=== PATIENT | female | born 1995 | race African-American/Black ===

== ENCOUNTER 2022-07-06 12:20 | Inpatient (IN) ==
[2022-07-06 14:33] LABS: Hematocrit (blood only) 36.6 % (37.0-47.0); Hemoglobin 12.9 g/dl (12.0-16.0); Mean Corpuscular Hemoglobin 29.8 pg (25.0-34.0); Mean Corpuscular Hgb Conc 35.2 g/dL (32.0-36.0); Mean Corpuscular Volume 84.5 fL (80.0-100.0); Mean Platelet Volume 11.3 fL (9.4-12.4); Platelet Count 188 K/uL (130-400); RDW Coefficient of Variation 14.3 % (11.5-14.5); RDW Standard Deviation 44.2 fL (36.4-46.3); Red Blood Count 4.33 M/uL (4.20-5.40); White Blood Count 6.74 K/ul (4.8-10.8)
[2022-07-06 14:54] LABS: Albumin Globulin Ratio 1.2 (0.9-2); Albumin Level 3.5 gm/dl (3.4-5.0); BUN Creatinine Ratio 13.8 (10-20); Bilirubin,Total 0.5 mg/dl (0.2-1.0); Calcium 9.5 mg/dl (8.6-10.3); Creatinine Clr Calc Pharmacy 184.9 ml/min; Est GFR (African American) 145.4 ml/min; Est GFR (Non-African American) 125.4 ml/min; Globulin 2.9 gm/dl (2.5-4.0); Potassium 4.2 mmol/L (3.5-5.1); Total Protein 6.4 gm/dl (6.0-8.3)
[2022-07-06] MEDS ORDERED: LIDOCAINE 1% LOCAL 20 ML VIAL INFIL PRN (16:08)
[2022-07-06] MEDS ORDERED: OXYTOCIN 30 UNITS/500 ML BAG IV PRN ×2 (16:08)
[2022-07-06 16:11] LABS: Creatinine Urine Random 29.6 mg/dl; Protein Creatinine Ratio Urine 0.6 (0-0.2)
--- NOTE | 2022-07-06 17:14 | History & Physical Report ---
Date of Service July 06, 2022 Assessment & Plan (1) Pre-eclampsia: Plan: 26 yo G1 at 39 3/7 wga now admitted for iol for pre-eclampsia w/o SF Normal to mild range BPs, will continue to monitor. Aware of PET w/o SF dx, labs wnl. if severe range BPs, aware of need for mag Fetus cat 1 Labor - 35cc fung placed via speculum after unsuccessful attempt manually due to discomfort, will start pit GBS neg epidural PRN Admission and Anticipated Discharge Date Admission Date: July 06, 2022 History of Present Illness Chief Complaint: Elevated BPs Primary Care Provider: Reema England MD 26 yo G1 at 39 3/7 wga presented for evaluation from [facility] due to elevated BPs in the office. Had routine OB visit and first BP was 152/94, +2 protein. She was sent to L&D for further eval. +FM; denies regular ctx, LOF, VB. Denies ASTUDILLO, vision change, CP, SOB, RUQ/epigastric pain. During monitoring, had primarily normotensive BPs with intermittent mild however did have them 4 hrs apart so met criteria for PIH. Bloodwork was wnl however UP:C was elevated so meets criteria for pre-eclampsia w/o SF. Given GA, recommended for induction PNI: None Past [employer] Hx: G1 q28-31d cycles denies hx STIs 12/2021 neg cyto Allergies Allergy/AdvReac Type Severity Reaction Status Date / Time No Known Allergies Allergy Verified 07/06/22 11:35 Home Medications Medication Instructions Recorded Confirmed Type folic acid 1 mg tablet 0 mg PO DAILY 01/04/22 07/06/22 History Patient History Surgical History H/O oral surgery Family History Other Hypertension Social History Smoking Status: Never smoker Second Hand Exposure: No; Do You Dip or Chew Tobacco: No; Hx Alcohol Use: No Hx Substance Use: No Preferred Language: Czech Communication Ability: Effective Weight And Balance Control Agent Required: No Beliefs That Will Affect Care: None marital status: marital status details: Jake (31) [phone] Current Living Situation: Family Current Living Situation Comment: lives with spouse, no pets. current occupational status: unemployed Other Information That Helps Us Care for You: No Feels Safe at Home: Yes Safety Concerns: Feels Safe At This Time Assistive Devices: None Physical Exam Genitourinary: OB Exam Abdomen: + vertex (confirmed by bsus) and + estimated weight (7) Manual OB Exam: + cervical dilation fingertip, + cervical effacement 50% and + station -2 OB Exam Monitor Tracing: + external FHT monitor used, + external uterine monitor used and + category I Results & Data Vital Signs (Past 12 Hours) Vital Signs Temp Pulse Resp BP 07/06/22 13:00 98.8 F 82 18 131/85 07/06/22 16:02 67 143/84 H 07/06/22 15:46 67 135/87 07/06/22 15:31 67 135/80 07/06/22 15:16 67 126/82 07/06/22 14:46 69 132/77 07/06/22 14:31 66 128/86 07/06/22 14:03 76 135/77 07/06/22 13:46 71 128/71 07/06/22 13:31 77 140/89 07/06/22 13:17 80 139/86 07/06/22 13:01 81 131/85 07/06/22 12:43 82 139/88 Laboratory Results 07/06/22 07/06/22 07/06/22 Range/Units Unknown Unknown 14:19 WBC (4.8-10.8) K/ul RBC (4.20-5.40) M/uL Hgb (12.0-16.0) g/dl Hct (37.0-47.0) % MCV (80.0-100.0) fL MCH (25.0-34.0) pg MCHC (32.0-36.0) g/dL RDW Std Deviation (36.4-46.3) fL RDW Coeff of Kecia (11.5-14.5) % Plt Count (130-400) K/uL MPV (9.4-12.4) fL Sodium (136-145) mmol/L Potassium (3.5-5.1) mmol/L Chloride (98-107) mmol/L Carbon Dioxide (21-32) mmol/L Anion Gap (3-11) BUN (6-23) mg/dl Creatinine (0.6-1.2) mg/dl Est Cr Clr Drug Dosing ml/min Est GFR ( Amer) ml/min Est GFR (Non-Af Amer) ml/min BUN/Creatinine Ratio (10-20) Glucose (70-99(Fasting)) mg/dl Calcium (8.6-10.3) mg/dl Total Bilirubin (0.2-1.0) mg/dl AST (13-39) U/L ALT (7-52) U/L Alkaline Phosphatase (34-104) U/L Total Protein (6.0-8.3) gm/dl Albumin (3.4-5.0) gm/dl Globulin (2.5-4.0) gm/dl Albumin/Globulin Ratio (0.9-2) Ur Random Creatinine 29.6 mg/dl U Random Total Protein 19.0 H (0-11.9) mg/dl Protein/Creatinin Ratio 0.6 H (0-0.2) SARS-CoV-2, RNA, NAAT NEGATIVE (NEGATIVE) Blood Type Pending Antibody Screen Pending 07/06/22 07/06/22 Range/Units 14:19 14:19 WBC 6.74 (4.8-10.8) K/ul RBC 4.33 (4.20-5.40) M/uL Hgb 12.9 (12.0-16.0) g/dl Hct 36.6 L (37.0-47.0) % MCV 84.5 (80.0-100.0) fL MCH 29.8 (25.0-34.0) pg MCHC 35.2 (32.0-36.0) g/dL RDW Std Deviation 44.2 (36.4-46.3) fL RDW Coeff of Kecia 14.3 (11.5-14.5) % Plt Count 188 (130-400) K/uL MPV 11.3 (9.4-12.4) fL Sodium 137 (136-145) mmol/L Potassium 4.2 (3.5-5.1) mmol/L Chloride 108 H (98-107) mmol/L Carbon Dioxide 23 (21-32) mmol/L Anion Gap 6 (3-11) BUN 8 (6-23) mg/dl Creatinine 0.58 L (0.6-1.2) mg/dl Est Cr Clr Drug Dosing 184.9 ml/min Est GFR ( Amer) 145.4 ml/min Est GFR (Non-Af Amer) 125.4 ml/min BUN/Creatinine Ratio 13.8 (10-20) Glucose 68 L (70-99(Fasting)) mg/dl Calcium 9.5 (8.6-10.3) mg/dl Total Bilirubin 0.5 (0.2-1.0) mg/dl AST 13 (13-39) U/L ALT 7 (7-52) U/L Alkaline Phosphatase 156 H (34-104) U/L Total Protein 6.4 (6.0-8.3) gm/dl Albumin 3.5 (3.4-5.0) gm/dl Globulin 2.9 (2.5-4.0) gm/dl Albumin/Globulin Ratio 1.2 (0.9-2) Ur Random Creatinine mg/dl U Random Total Protein (0-11.9) mg/dl Protein/Creatinin Ratio (0-0.2) SARS-CoV-2, RNA, NAAT (NEGATIVE) Blood Type Antibody Screen Coding Level of Care Code None Diagnoses Pre-eclampsia O14.90
[2022-07-06] MEDS ORDERED: miSOPROStoL 25 MCG TAB PV ONE (17:45)
[2022-07-06] MEDS: LACTATED RINGER'S 1,000 ML IV PRN (18:43)
[2022-07-06] MEDS ORDERED: LIDOCAINE 2%/EPINEPHRINE 1:200,000 20 ML PF ONE (23:19)
[2022-07-06] MEDS ORDERED: ePHEDrine sulfate 50 MG/ML AMP ONE (23:19)
[2022-07-06] MEDS ORDERED: BUPIVACAINE 0.25% PF 30 ML VIAL ONE (23:19)
[2022-07-06] MEDS ORDERED: fentaNYL citrate PF 100 MCG/2 ML VIAL ONE (23:19)
[2022-07-06] MEDS ORDERED: SODIUM CHLORIDE 0.9% PF INJ 10 ML VIAL ONE (23:19)
[2022-07-06] MEDS ORDERED: fentaNYL 2MCG/ML ROPIVACAINE 1.25MG/ML 100 ML BAG EPI ONE (23:20)
--- NOTE | 2022-07-07 00:11 | Anesthesiology Consultation ---
Date of Service July 07, 2022 Assessment & Plan Chart Review Chart Review: Acceptable Risk for Labor Epidural Consults Requested none ASA ASA2 Proposed Anesthesia Anesthesia Type: Labor Epidural Risk / Benefits Reviewed With: PT / POA / Parent / Guardian, Accepts Plan and Informed Consent Obtained History Height/Weight Height: 5 ft 8.11 in Weight: 106.594 kg Allergies Allergy/AdvReac Type Severity Reaction Status Date / Time No Known Allergies Allergy Verified 07/06/22 11:35 Medications Home Medications Medication Instructions Recorded Confirmed Last Taken folic acid 1 mg tablet 0 mg PO DAILY 01/04/22 07/06/22 01/03/22 Active Medications Generic Name Dose Route Start Last Admin Trade Name Freq PRN Reason Stop Dose Admin Lactated Ringer's 1,000 mls @ 125 mls/hr 07/06/22 16:08 07/06/22 18:43 Lr IV 07/08/22 16:07 125 mls/hr .Q8H PRN Administration L&D Protocol Protocol Oxytocin 30 units in 500 mls @ 10 mls/hr 07/06/22 16:08 07/06/22 22:12 Pitocin IV 07/08/22 16:07 0.6 units/hr .Q24H PRN 10 mls/hr Labor Induction/Augmentation Titration Protocol 0.6 UNITS/HR Exercise / Class Metabolic Activity II 4-5 Yardwork/Stairs/Walk up hill Past Family History Family History Other Hypertension Past Surgical History Surgical History H/O oral surgery Past Anesthesia History No Hx of Anesthesia Complications and No Family Hx of Anesthesia Complications History of PONV No Hx of PONV and No Hx of Motion Sickness Social History Smoking Status: Never smoker Do You Dip or Chew Tobacco: No Hx Alcohol Use: No Hx Substance Use: No Physical Exam Vital Signs Last Vital Signs Temp 97.7 F 07/06/22 19:17 Pulse 73 07/06/22 23:55 Resp 18 07/06/22 19:17 BP 146/95 H 07/06/22 23:55 ENMT Mouth: no dentition abnormality Thyromental Distance: > or= 3.5 Finger Breadths Mallampati Class: II Neck normal visual inspection Respiratory normal respiratory effort Auscultation: lungs clear to auscultation bilaterally Cardiovascular Rate/Rhythm: regular rate and regular rhythm Testing Laboratory Results 07/06/22 14:19 07/06/22 14:19 Blood Type O Positive 07/06/22 14:19 Antibody Screen NEGATIVE 07/06/22 14:19
[2022-07-07] MEDS ORDERED: BUPIVACAINE 0.25% PF 30 ML VIAL EPI STA (00:32)
[2022-07-07] MEDS ORDERED: NALOXONE HCL 1 MG in SODIUM CHLORIDE 0.9% 1000ML 1,000 ML IV PRN ×2 (00:32→17:53)
[2022-07-07] MEDS ORDERED: SODIUM CHLORIDE 0.9% PF INJ 10 ML VIAL EPI STA (00:32)
[2022-07-07] MEDS ORDERED: ePHEDrine sulfate 50 MG/ML AMP IV PRN ×2 (00:32→17:53)
[2022-07-07] MEDS ORDERED: ROPIVACAINE 0.5% PF 5 MG/ML 20 ML VIAL EPI PRN (00:32)
[2022-07-07] MEDS ORDERED: BUPIVACAINE 0.25% PF 30 ML VIAL EPI PRN (00:32)
[2022-07-07] MEDS ORDERED: ONDANSETRON INJ 2 MG/ML 2 ML VIAL IV PRN ×2 (00:32→17:53)
[2022-07-07] MEDS ORDERED: SODIUM CHLORIDE 0.9% PF INJ 10 ML VIAL EPI PRN (00:32)
[2022-07-07] MEDS ORDERED: fentaNYL citrate PF 100 MCG/2 ML VIAL EPI PRN (00:32)
[2022-07-07] MEDS ORDERED: NALBUPHINE HCL INJ 10 MG/ML AMP IV PRN ×2 (00:32→17:53)
[2022-07-07] MEDS ORDERED: fentaNYL 2MCG/ML ROPIVACAINE 1.25MG/ML 100 ML BAG EPI PRN (00:32)
[2022-07-07] MEDS ORDERED: LIDOCAINE 2%/EPINEPHRINE 1:200,000 20 ML PF EPI STA (00:32)
[2022-07-07] MEDS ORDERED: NALOXONE HCL 0.4 MG/1 ML VIAL/CARP IV PRN ×2 (00:32→17:53)
[2022-07-07] MEDS ORDERED: fentaNYL citrate PF 100 MCG/2 ML VIAL EPI STA (00:32)
[2022-07-07] MEDS ORDERED: diphenhydrAMINE 50 MG/ML VIAL IV PRN ×2 (00:32→17:53)
[2022-07-07] MEDS ORDERED: LIDOCAINE 2% MPF LOCAL 5 ML VIAL EPI PRN (00:32)
[2022-07-07] MEDS: LACTATED RINGER'S 1,000 ML IV PRN ×3 (02:43→16:29)
--- NOTE | 2022-07-07 06:21 | Labor Progress Brief Note ---
Date of Service July 07, 2022 Subjective comfortable w/ epidural Assessment & Plan (1) Pre-eclampsia: Plan: 26 yo G1 at 39 3/7 [facility]ga now admitted for iol for pre-eclampsia w/o SF VSS, normal to mild range Fetus cat 1 Labor - Lemon balloon removed from vagina, chux appeared wet and +nitrazine so suspect srom at some point. ?forebag ruptured. Pit at 20, continue augmentation Pre-eclampsia w/o SF - mild range BPs, continue to monitor GBS neg epidural in place Admission and Anticipated Discharge Date Admission Date: July 06, 2022 Physical Exam Genitourinary: Manual OB Exam: + cervical dilation (3-4), + cervical effacement 50%, + station -2 and + amniotic fluid (chux appears wet and nitrazine positive, arom forebag) OB Exam Monitor Tracing: + external FHT monitor used, + external uterine monitor used (q2-3) and + category I (130/mod/+accel/-decel) Results & Data Vital Signs (Past 12 Hours) Vital Signs Temp Pulse Resp BP Pulse Ox 07/06/22 19:17 97.7 F 18 07/07/22 06:13 76 99 07/07/22 06:08 73 100 07/07/22 06:03 86 100 07/07/22 06:04 83 138/87 07/07/22 05:58 77 99 07/07/22 05:53 78 100 07/07/22 05:48 71 140/78 99 07/07/22 05:43 75 100 07/07/22 05:38 81 100 07/07/22 05:33 70 134/82 100 07/07/22 05:28 82 99 07/07/22 05:23 82 100 07/07/22 05:18 83 149/72 H 100 07/07/22 05:13 81 100 07/07/22 05:08 85 100 07/07/22 05:04 92 H 07/07/22 05:03 77 100 07/07/22 05:04 88 139/80 94 07/07/22 04:58 79 98 07/07/22 04:53 78 100 07/07/22 04:48 72 135/75 100 07/07/22 04:43 77 100 07/07/22 04:38 79 98 07/07/22 04:33 77 97 05 04:34 72 139/82 05 04:28 72 99 05 04:23 76 99 05 04:19 76 137/75 05 04:18 76 99 05 04:13 73 100 05 03:50 18 05 03:50 97.3 F L 18 07/07/22 04:08 74 100 05 04:03 77 137/84 100 05 03:58 77 100 05 03:53 73 100 05 03:48 80 100 05 03:49 81 141/77 H 05 03:43 73 100 05 03:38 77 100 05 03:33 80 138/75 100 05 03:28 77 100 05 03:23 73 100 05 03:18 74 100 05 03:13 73 100 07/07/22 03:08 77 100 05 03:04 71 134/82 05 03:03 74 100 05 02:58 74 100 05 02:53 76 100 05 02:48 100 07/07/22 02:48 73 05 02:48 72 120/66 05 02:43 73 100 05 02:38 73 100 05 02:33 76 127/66 100 05 02:28 70 99 07/07/22 02:23 88 100 05 02:18 81 100 05 02:19 76 141/81 H 07/07/22 02:13 75 100 05 02:08 76 99 05 02:04 72 139/75 05 02:03 80 98 05 01:58 85 98 05 01:53 78 96 05 01:48 78 98 05 01:49 74 141/84 H 05 01:43 75 97 05 01:38 74 97 05 01:34 74 155/91 H 0523 01:33 74 97 07/07/22 01:28 75 96 07/07/22 01:23 76 96 07/07/22 01:18 98 07/07/22 01:18 83 07/07/22 01:18 76 139/91 07/07/22 01:13 77 97 07/07/22 01:08 74 97 07/07/22 00:55 18 07/07/22 00:55 18 07/07/22 01:01 18 07/07/22 01:01 18 07/07/22 01:03 79 97 07/07/22 01:04 76 142/83 H 07/07/22 00:58 84 97 07/07/22 00:53 77 97 07/07/22 00:45 18 07/07/22 00:45 18 07/07/22 00:48 77 99 07/07/22 00:35 18 07/07/22 00:35 18 07/07/22 00:46 83 139/73 07/07/22 00:43 79 98 07/07/22 00:44 75 152/84 H 07/07/22 00:42 73 149/82 H 07/07/22 00:40 75 18 144/77 H 07/07/22 00:38 98 07/07/22 00:38 74 07/07/22 00:38 75 144/78 H 07/07/22 00:36 76 141/79 H 07/07/22 00:33 75 98 07/07/22 00:34 77 143/74 H 07/07/22 00:32 74 142/80 H 07/07/22 00:30 97.3 F L 82 18 145/77 H 07/07/22 00:28 80 165/93 H 98 07/07/22 00:24 90 164/96 H 07/07/22 00:23 82 97 07/07/22 00:18 78 98 07/07/22 00:13 78 98 05 23:55 73 05 23:55 146/95 H 07/06/22 23:40 75 05 23:40 155/88 H 05 23:25 72 05 23:25 159/90 H 05 23:11 70 05 23:11 162/85 H 07/06/22 22:55 69 07/06/22 22:55 166/92 H 07/06/22 22:41 66 07/06/22 22:41 148/92 H 07/06/22 22:09 74 07/06/22 22:09 132/84 07/06/22 21:54 75 07/06/22 21:54 133/81 07/06/22 21:40 69 07/06/22 21:40 135/83 07/06/22 21:30 75 07/06/22 21:30 152/88 H 07/06/22 21:10 71 07/06/22 21:10 145/91 H 07/06/22 20:55 73 07/06/22 20:55 134/67 07/06/22 20:39 71 07/06/22 20:39 141/83 H 07/06/22 20:24 69 07/06/22 20:24 154/89 H 07/06/22 19:22 66 07/06/22 19:22 155/95 H 07/06/22 19:11 63 07/06/22 19:11 160/96 H 07/06/22 19:09 67 07/06/22 19:09 156/111 H 07/06/22 19:09 64 07/06/22 19:09 181/103 H 07/06/22 18:53 61 07/06/22 18:53 165/98 H 07/06/22 18:37 68 07/06/22 18:37 161/93 H 07/06/22 18:24 68 07/06/22 18:24 164/98 H Coding Level of Care Code None Diagnoses Pre-eclampsia O14.90
[2022-07-07] MEDS ORDERED: NURSING L&D Epidural Breakthrough Pain Update ONE (10:28)
--- NOTE | 2022-07-07 14:04 | Labor Progress Brief Note ---
Date of Service July 07, 2022 Patient was admitted by Dr. Priest yesterday and induction was started she was 4 cm at 6 AM currently now I have checked her it is 2 PM and she is still 4 cm the cervix is somewhat swollen. She is on Pitocin and IUPC is placed under sterile technique we will continue to watch of her progress is certainly slow Assessment & Plan Admission and Anticipated Discharge Date Admission Date: July 06, 2022 Results & Data Vital Signs (Past 12 Hours) Vital Signs Temp Pulse Resp BP BP Pulse Ox O2 Del Method 07/07/22 12:05 98.6 F 16 133/79 100 Room Air 07/07/22 13:58 87 86 L 07/07/22 13:53 70 100 07/07/22 13:48 74 140/90 100 07/07/22 13:43 72 100 07/07/22 13:38 76 99 07/07/22 13:33 100 07/07/22 13:33 78 07/07/22 13:33 75 151/98 H 07/07/22 13:28 71 100 07/07/22 13:23 71 100 07/07/22 13:18 75 151/95 H 100 07/07/22 13:13 80 100 07/07/22 13:10 98.1 F 91 H 18 93 07/07/22 13:08 77 100 07/07/22 13:03 73 100 07/07/22 13:04 68 145/89 H 07/07/22 12:58 85 99 07/07/22 12:53 73 99 07/07/22 12:48 70 134/75 99 07/07/22 12:43 77 98 07/07/22 12:38 69 98 07/07/22 12:33 100 07/07/22 12:33 67 07/07/22 12:33 68 134/68 07/07/22 12:28 69 99 07/07/22 12:23 67 99 07/07/22 12:18 99 07/07/22 12:18 67 07/07/22 12:18 68 128/76 07/07/22 12:13 71 98 07/07/22 12:08 68 99 07/07/22 12:04 68 133/79 07/07/22 12:03 98.6 F 69 16 99 07/07/22 11:58 68 100 07/07/22 11:53 69 99 05 11:48 68 148/74 H 100 05 11:43 73 100 05 11:38 67 99 05 11:33 66 141/89 H 100 05 11:28 67 100 05 11:23 76 100 05 11:19 73 130/89 05 11:18 76 100 05 11:13 76 100 05 11:08 80 100 05 11:03 77 147/74 H 99 05 10:58 75 99 05 10:53 74 98 05 10:48 75 98 05 10:49 73 134/69 05 10:43 71 99 05 10:38 78 99 05 10:33 72 137/80 99 05 10:28 77 98 05 10:23 74 98 05 10:19 72 137/81 05 10:18 76 100 05 10:13 80 99 05 10:08 80 97 05 10:04 98.6 F 80 16 145/87 H 07/07/22 10:03 81 98 05 09:58 81 98 05 09:53 79 97 05 09:48 97 05 09:48 80 05 09:48 77 144/80 H 07/07/22 09:43 78 99 05 09:38 79 99 05 09:33 79 139/77 98 05 09:28 81 98 05 09:23 75 98 05 09:18 99 05 09:18 77 05 09:18 75 143/83 H 05 09:13 81 97 05 09:08 78 97 05 09:05 16 07/07/22 09:05 99.1 F 16 05 09:03 97 05 09:03 77 05 09:03 78 130/75 05 08:58 80 97 05 08:53 81 98 05 08:48 98 05 08:48 78 05 08:48 77 119/65 05 08:43 83 99 05 08:38 84 98 05 08:33 99 05 08:33 84 05 08:33 78 116/67 05 08:28 87 100 05 08:23 81 100 05 08:10 18 05 08:10 99.1 F 18 07/07/22 08:18 100 05 08:18 78 05 08:18 76 127/78 05 08:13 74 100 07/07/22 08:08 81 99 05 08:03 83 99 07/07/22 08:04 74 142/82 H 05 07:58 80 99 05 07:53 78 99 05 07:48 99 07/07/22 07:48 74 05 07:48 78 142/87 H 05 07:43 85 100 05 07:38 78 99 05 07:33 83 145/72 H 100 05 07:28 76 99 05 07:23 77 99 05 07:18 80 137/77 99 05 07:13 86 100 07/07/22 07:08 83 100 05 07:05 98.2 F 75 18 132/73 05 07:03 87 100 05 06:58 72 99 05 06:53 81 99 05 06:48 75 99 05 06:49 75 131/72 05 06:43 83 100 05 06:38 81 99 05 06:33 99 05 06:33 81 05 06:33 85 137/86 05 06:28 79 99 05 06:06 18 05 06:06 97.9 F 18 05 06:23 88 100 05 06:19 80 132/76 05 06:18 88 100 05 06:13 76 99 05 06:08 73 100 05 06:03 86 100 07/07/22 06:04 83 138/87 05 05:58 77 99 05 05:53 78 100 05 05:48 71 140/78 99 05 05:43 75 100 05 05:38 81 100 05 05:33 70 134/82 100 05 05:28 82 99 05 05:23 82 100 05 05:18 83 149/72 H 100 05 05:13 81 100 07/07/22 05:08 85 100 05 05:04 92 H 07/07/22 05:03 77 100 07/07/22 05:04 88 139/80 94 05 04:58 79 98 05 04:53 78 100 05 04:48 72 135/75 100 05 04:43 77 100 05 04:38 79 98 05 04:33 77 97 05 04:34 72 139/82 05 04:28 72 99 05 04:23 76 99 05 04:19 76 137/75 05 04:18 76 99 05 04:13 73 100 05 03:50 18 05 03:50 97.3 F L 18 07/07/22 04:08 74 100 05 04:03 77 137/84 100 05 03:58 77 100 05 03:53 73 100 05 03:48 80 100 05 03:49 81 141/77 H 05 03:43 73 100 05 03:38 77 100 05 03:33 80 138/75 100 05 03:28 77 100 05 03:23 73 100 05/23/23 03:18 74 100 07/07/22 03:13 73 100 07/07/22 03:08 77 100 07/07/22 03:04 71 134/82 07/07/22 03:03 74 100 07/07/22 02:58 74 100 07/07/22 02:53 76 100 07/07/22 02:48 100 07/07/22 02:48 73 07/07/22 02:48 72 120/66 07/07/22 02:43 73 100 07/07/22 02:38 73 100 07/07/22 02:33 76 127/66 100 07/07/22 02:28 70 99 07/07/22 02:23 88 100 07/07/22 02:18 81 100 07/07/22 02:19 76 141/81 H 07/07/22 02:13 75 100 07/07/22 02:08 76 99 07/07/22 02:04 72 139/75 Coding Level of Care Code None Diagnoses
[2022-07-07] MEDS ORDERED: LACTATED RINGER'S 1,000 ML IV SCH ×2 (16:00→18:36)
--- NOTE | 2022-07-07 16:02 | Labor Progress Brief Note ---
Date of Service July 07, 2022 Patient is still 4 cm there is been no change her contractions are adequate with 300 [place] units per 10 minutes heart rate still category 1 I have recommended as she has not changed in 10 hours now patient agrees we discussed risks including increased risk of infection with prolonged labor section. The patient was counseled to the nature of the procedure including alternatives such as labor. Risks were discussed including bleeding infection injury to bowel bladder ureter vessels and even baby. Deep Vein thrombosis, pulmonary embolus discussed. Breakdown of incision reviewed. Deep vein thrombosis pulmonary embolus hernia and failure of the incision to heal were discussed Patient verbalized understanding of this and was given ample time to ask questions Assessment & Plan Admission and Anticipated Discharge Date Admission Date: July 06, 2022 Results & Data Vital Signs (Past 12 Hours) Vital Signs Temp Pulse Resp BP BP Pulse Ox O2 Del Method 07/07/22 12:05 98.6 F 16 133/79 100 Room Air 07/07/22 15:58 79 100 07/07/22 15:53 86 98 07/07/22 15:51 84 89 L 07/07/22 15:48 87 100 07/07/22 15:47 77 144/94 H 07/07/22 15:43 72 99 07/07/22 15:38 72 99 07/07/22 15:33 85 144/91 H 99 07/07/22 15:28 81 100 07/07/22 15:23 90 151/103 H 100 07/07/22 15:18 88 99 07/07/22 15:19 86 144/95 H 07/07/22 15:13 93 H 100 07/07/22 15:08 77 100 07/07/22 15:03 99 07/07/22 15:03 74 07/07/22 15:03 71 141/90 H 07/07/22 14:58 79 100 07/07/22 14:53 75 97 07/07/22 14:48 74 152/92 H 96 07/07/22 14:43 80 97 07/07/22 14:38 76 97 07/07/22 14:33 97 07/07/22 14:33 75 07/07/22 14:33 74 157/93 H 07/07/22 14:28 77 99 07/07/22 14:23 74 100 07/07/22 14:19 74 152/88 H 07/07/22 14:18 79 100 07/07/22 14:13 71 100 07/07/22 14:05 18 07/07/22 14:05 98.1 F 18 07/07/22 14:08 81 100 07/07/22 14:03 100 07/07/22 14:03 81 07/07/22 14:04 85 90 07/07/22 14:03 73 147/89 H 07/07/22 13:58 87 86 L 07/07/22 13:53 70 100 05 13:48 74 140/90 100 07/07/22 13:43 72 100 07/07/22 13:38 76 99 05 13:33 100 07/07/22 13:33 78 05 13:33 75 151/98 H 07/07/22 13:28 71 100 07/07/22 13:23 71 100 07/07/22 13:18 75 151/95 H 100 07/07/22 13:13 80 100 07/07/22 13:10 98.1 F 91 H 18 93 07/07/22 13:08 77 100 07/07/22 13:03 73 100 07/07/22 13:04 68 145/89 H 07/07/22 12:58 85 99 07/07/22 12:53 73 99 07/07/22 12:48 70 134/75 99 07/07/22 12:43 77 98 07/07/22 12:38 69 98 07/07/22 12:33 100 07/07/22 12:33 67 05 12:33 68 134/68 05 12:28 69 99 05 12:23 67 99 07/07/22 12:18 99 07/07/22 12:18 67 05 12:18 68 128/76 05 12:13 71 98 07/07/22 12:08 68 99 07/07/22 12:04 68 133/79 05 12:03 98.6 F 69 16 99 05 11:58 68 100 05 11:53 69 99 05 11:48 68 148/74 H 100 05 11:43 73 100 05 11:38 67 99 05 11:33 66 141/89 H 100 05 11:28 67 100 05 11:23 76 100 05 11:19 73 130/89 05 11:18 76 100 05 11:13 76 100 05 11:08 80 100 05 11:03 77 147/74 H 99 05 10:58 75 99 05 10:53 74 98 05 10:48 75 98 05 10:49 73 134/69 05 10:43 71 99 05 10:38 78 99 05 10:33 72 137/80 99 05 10:28 77 98 05 10:23 74 98 05 10:19 72 137/81 05 10:18 76 100 05 10:13 80 99 05 10:08 80 97 05 10:04 98.6 F 80 16 145/87 H 07/07/22 10:03 81 98 05 09:58 81 98 05 09:53 79 97 05 09:48 97 05 09:48 80 05 09:48 77 144/80 H 07/07/22 09:43 78 99 05 09:38 79 99 05 09:33 79 139/77 98 05 09:28 81 98 05 09:23 75 98 05 09:18 99 05 09:18 77 05 09:18 75 143/83 H 07/07/22 09:13 81 97 05 09:08 78 97 05 09:05 16 07/07/22 09:05 99.1 F 16 07/07/22 09:03 97 07/07/22 09:03 77 05 09:03 78 130/75 05 08:58 80 97 05 08:53 81 98 05 08:48 98 05 08:48 78 05 08:48 77 119/65 05 08:43 83 99 05 08:38 84 98 05 08:33 99 05 08:33 84 05 08:33 78 116/67 05 08:28 87 100 05 08:23 81 100 05 08:10 18 07/07/22 08:10 99.1 F 18 07/07/22 08:18 100 05 08:18 78 05 08:18 76 127/78 05 08:13 74 100 05 08:08 81 99 07/07/22 08:03 83 99 07/07/22 08:04 74 142/82 H 07/07/22 07:58 80 99 05 07:53 78 99 05 07:48 99 05 07:48 74 05 07:48 78 142/87 H 05 07:43 85 100 05 07:38 78 99 05 07:33 83 145/72 H 100 05 07:28 76 99 05 07:23 77 99 05 07:18 80 137/77 99 05 07:13 86 100 05 07:08 83 100 07/07/22 07:05 98.2 F 75 18 132/73 05 07:03 87 100 07/07/22 06:58 72 99 05 06:53 81 99 05 06:48 75 99 05 06:49 75 131/72 05 06:43 83 100 05 06:38 81 99 05 06:33 99 05 06:33 81 05 06:33 85 137/86 05 06:28 79 99 05 06:06 18 05 06:06 97.9 F 18 05 06:23 88 100 05 06:19 80 132/76 05 06:18 88 100 07/07/22 06:13 76 99 05 06:08 73 100 07/07/22 06:03 86 100 07/07/22 06:04 83 138/87 05 05:58 77 99 05 05:53 78 100 07/07/22 05:48 71 140/78 99 05 05:43 75 100 07/07/22 05:38 81 100 07/07/22 05:33 70 134/82 100 07/07/22 05:28 82 99 07/07/22 05:23 82 100 07/07/22 05:18 83 149/72 H 100 07/07/22 05:13 81 100 07/07/22 05:08 85 100 07/07/22 05:04 92 H 07/07/22 05:03 77 100 07/07/22 05:04 88 139/80 94 07/07/22 04:58 79 98 07/07/22 04:53 78 100 07/07/22 04:48 72 135/75 100 05 04:43 77 100 07/07/22 04:38 79 98 07/07/22 04:33 77 97 07/07/22 04:34 72 139/82 05 04:28 72 99 07/07/22 04:23 76 99 05 04:19 76 137/75 05 04:18 76 99 05 04:13 73 100 07/07/22 04:08 74 100 07/07/22 04:03 77 137/84 100 Coding Level of Care Code None Diagnoses
[2022-07-07] MEDS ORDERED: LIDOCAINE 2%/EPINEPHRINE 1:200,000 20 ML PF ONE (16:07)
[2022-07-07] MEDS ORDERED: OXYTOCIN 10 UNITS/ML 10ML VIAL ONE (16:07)
[2022-07-07] MEDS ORDERED: ONDANSETRON INJ 2 MG/ML 2 ML VIAL ONE (16:07)
[2022-07-07] MEDS ORDERED: MoRPHine SULFATE PF 1 MG/ML 10 ML AMP/VIAL ONE (16:08)
[2022-07-07] MEDS ORDERED: LACTATED RINGER'S 500 ML IV PRN (17:53)
[2022-07-07] MEDS ORDERED: MoRPHine SULFATE PF 1 MG/ML 10 ML AMP/VIAL EPI ONE (17:53)
[2022-07-07] MEDS ORDERED: PROMETHAZINE HCL 6.25 MG in SODIUM CHLORIDE 0.9% 50 ML IV PRN (17:53)
[2022-07-07] MEDS ORDERED: NALOXONE HCL 0.08 MG in SYRINGE 1.8 ML IV PRN (17:53)
[2022-07-07] MEDS ORDERED: HYDROmorphone INJ 0.5 MG/0.5 ML SYR IV PRN (17:53)
[2022-07-07] MEDS ORDERED: SODIUM CHLORIDE 0.9% 1000ML 1,000 ML IV SCH (18:00)
[2022-07-07] MEDS ORDERED: NO NARCOTICS OR SEDATIVES SCH (18:00)
[2022-07-07] MEDS ORDERED: DC INTRASPINAL MORPHINE SCH (18:00)
--- NOTE | 2022-07-07 18:14 | Operative Report ---
PG Post Operative Report Pre & Post Diagnosis Operation Date: 07/07/22 16:50 Pre-Op Diagnosis: 1. Failure to progress Post-Op Diagnosis: Same I identified the patient and participated in the time-out.: Yes Procedure Operation Date: 07/07/22 16:50 Actual Procedures p Section in LD with the of a live male child at 1735. - Derick Garg MD, FACOG Surgeon Derick Garg MD, FACOG Flight Technician . Estimated Blood Loss 500 Findings Consistent with Post-Op Diagnosis Specimens cord gases, blood Description of Procedure Regional anesthetic had been given by anesthesia patient was prepped and draped with a leftward tilt preoperative antibiotics had been given in appropriate timing by anesthesiology. Once the prep was allowed to fully dry timeout was performed. Pickups with teeth were used to test the incision area was found to be adequate for incision as the patient did not feel sharp pain. Scalpel was used to make a Pfannenstiel incision on the lower abdomen. We then cut through the subcutaneous fat down to the level of the anterior rectus sheath fascia this was cut in the midline and then extended laterally with the curved Clemente scissors. At this stage we then placed 2 Dustin clamps on the anterior aspect of the fascia. Using the curved Clemente's we are able to dissect the fascia superiorly away from the rectus muscles. Care was taken to maintain hemostasis. Dustin clamps were then placed to the inferior aspect of the anterior sheath of the fascia. Fascia was then dissected away from the rectus muscles inferiorly towards the pubic bone. A Dustin was then placed in the midline both inferiorly and superiorly. This was to allow exposure by retraction rectus muscles were in the midline with were then able to cut through the peritoneum and then enter the peritoneal cavity. Opening was enlarged to allow exposure of the peritoneal cavity both superiorly and inferiorly. Once adequate space was obtained a bladder retractor was placed to expose the lower segment Metzenbaums were used to dissect the bladder flap inferiorly away from the uterus. This was done sharply bladder retractor was then repositioned to expose the lower segment of the uterus Fresh scalpel was used to make a low transverse incision on the uterus. Uterus was then entered bluntly with the operators finger, membranes ruptured and the opening was enlarged using the operators fingers bluntly pulling superiorly and inferiorly to allow exposure. Baby was delivered by first flexion of the head elevation of the head out of the pelvis and then pressure by the assistant manager retail on the maternal abdomen. Baby's head was then delivered mouth and then nares were suctioned and then using gentle traction the baby was fully delivered. Live vigorous infant. Fluid was clear cord clamped and cut cord gases obtained cord blood obtained baby handed to pediatrics. Placenta removed was removed with traction we ensure the entire placenta was removed with a moist lap sponge into the uterus Uterus was then exteriorized. IV Pitocin had been started by anesthesia tone improved there were no extensions the uterus was then closed using 0 Monocryl in a 2 layer closure the first layer closed in a running locked fashion from left to right and then a second closure from left to right in a running nonlocked fashion. At this stage hemostasis was excellent. Uterus was placed back in the peritoneal cavity with suction irrigation out and inspection of the uterus at this stage revealed excellent hemostasis Retractors were removed urine color was clear at this stage of the case we inspected the rectus muscles they were hemostatic fascia was closed with 0 Vicryl subcutaneous fat was irrigated and closed with 3-0 Vicryl skin closed with 4-0 subcuticular Monocryl Note uterus, adnexa normal I attest to the content of the Intraoperative Record and any orders documented therein. Any exceptions are noted below. OB Procedure Charges 63906
--- NOTE | 2022-07-07 18:18 | Anesthesiology Progress Note ---
Date of Service July 07, 2022 Anesthesia Post Procedure Vital Signs Vital Signs: Temp Pulse Resp BP BP Pulse Ox O2 Del Method 07/07/22 12:05 37.0 C 16 133/79 100 Room Air 07/06/22 19:17 36.5 C 18 07/07/22 18:16 95 H 100 07/07/22 18:15 96 H 133/71 07/07/22 18:11 99 H 130/66 100 07/07/22 17:03 88 99 07/07/22 16:58 96 H 99 07/07/22 16:55 90 138/71 07/07/22 16:53 96 H 100 07/07/22 16:54 98 H 88 L 07/07/22 16:48 118 H 206/128 H 100 07/07/22 16:47 100 H 93 07/07/22 16:43 81 100 07/07/22 16:38 80 100 07/07/22 16:33 83 100 07/07/22 16:32 79 147/85 H 07/07/22 16:28 85 100 07/07/22 16:23 77 99 07/07/22 16:18 90 100 07/07/22 16:17 84 139/84 07/07/22 16:13 89 99 07/07/22 16:08 87 100 07/07/22 16:03 80 99 07/07/22 16:02 81 149/90 H 07/07/22 15:58 79 100 07/07/22 15:53 86 98 07/07/22 15:51 84 89 L 07/07/22 15:48 87 100 07/07/22 15:47 77 144/94 H 07/07/22 15:43 72 99 07/07/22 15:38 72 99 07/07/22 15:33 85 144/91 H 99 07/07/22 15:28 81 100 07/07/22 15:23 90 151/103 H 100 07/07/22 15:18 88 99 07/07/22 15:19 86 144/95 H 07/07/22 15:13 93 H 100 07/07/22 15:08 77 100 07/07/22 15:03 99 07/07/22 15:03 74 07/07/22 15:03 71 141/90 H 07/07/22 14:58 79 100 07/07/22 14:53 75 97 07/07/22 14:48 74 152/92 H 96 07/07/22 14:43 80 97 07/07/22 14:38 76 97 07/07/22 14:33 97 07/07/22 14:33 75 07/07/22 14:33 74 157/93 H 07/07/22 14:28 77 99 07/07/22 14:23 74 100 07/07/22 14:19 74 152/88 H 07/07/22 14:18 79 100 07/07/22 14:13 71 100 07/07/22 14:05 18 07/07/22 14:05 36.7 C 18 07/07/22 14:08 81 100 07/07/22 14:03 100 07/07/22 14:03 81 07/07/22 14:04 85 90 07/07/22 14:03 73 147/89 H 07/07/22 13:58 87 86 L 07/07/22 13:53 70 100 07/07/22 13:48 74 140/90 100 07/07/22 13:43 72 100 07/07/22 13:38 76 99 07/07/22 13:33 100 07/07/22 13:33 78 05 13:33 75 151/98 H 07/07/22 13:28 71 100 07/07/22 13:23 71 100 07/07/22 13:18 75 151/95 H 100 07/07/22 13:13 80 100 07/07/22 13:10 36.7 C 91 H 18 93 07/07/22 13:08 77 100 07/07/22 13:03 73 100 07/07/22 13:04 68 145/89 H 07/07/22 12:58 85 99 07/07/22 12:53 73 99 07/07/22 12:48 70 134/75 99 05 12:43 77 98 07/07/22 12:38 69 98 07/07/22 12:33 100 07/07/22 12:33 67 05 12:33 68 134/68 05 12:28 69 99 05 12:23 67 99 05 12:18 99 07/07/22 12:18 67 05 12:18 68 128/76 05 12:13 71 98 05 12:08 68 99 05 12:04 68 133/79 05 12:03 37.0 C 69 16 99 05 11:58 68 100 05 11:53 69 99 05 11:48 68 148/74 H 100 05 11:43 73 100 05 11:38 67 99 05 11:33 66 141/89 H 100 05 11:28 67 100 05 11:23 76 100 05 11:19 73 130/89 05 11:18 76 100 05 11:13 76 100 05 11:08 80 100 07/07/22 11:03 77 147/74 H 99 05 10:58 75 99 05 10:53 74 98 05 10:48 75 98 05 10:49 73 134/69 05 10:43 71 99 05 10:38 78 99 05 10:33 72 137/80 99 05 10:28 77 98 05 10:23 74 98 05 10:19 72 137/81 05 10:18 76 100 05 10:13 80 99 05 10:08 80 97 07/07/22 10:04 37.0 C 80 16 145/87 H 07/07/22 10:03 81 98 05 09:58 81 98 05 09:53 79 97 05 09:48 97 05 09:48 80 05 09:48 77 144/80 H 05 09:43 78 99 05 09:38 79 99 05 09:33 79 139/77 98 05 09:28 81 98 05 09:23 75 98 05 09:18 99 05 09:18 77 05 09:18 75 143/83 H 05/23 09:13 81 97 05 09:08 78 97 05 09:05 16 07/07/22 09:05 37.3 C 16 07/07/22 09:03 97 07/07/22 09:03 77 05 09:03 78 130/75 05 08:58 80 97 05 08:53 81 98 05 08:48 98 07/07/22 08:48 78 05 08:48 77 119/65 05 08:43 83 99 05 08:38 84 98 07/07/22 08:33 99 05 08:33 84 05 08:33 78 116/67 05 08:28 87 100 05 08:23 81 100 05 08:10 18 07/07/22 08:10 37.3 C 18 07/07/22 08:18 100 07/07/22 08:18 78 05 08:18 76 127/78 05 08:13 74 100 05 08:08 81 99 05 08:03 83 99 05 08:04 74 142/82 H 07/07/22 07:58 80 99 05 07:53 78 99 07/07/22 07:48 99 07/07/22 07:48 74 05 07:48 78 142/87 H 07/07/22 07:43 85 100 05 07:38 78 99 05 07:33 83 145/72 H 100 05 07:28 76 99 05 07:23 77 99 05 07:18 80 137/77 99 05 07:13 86 100 07/07/22 07:08 83 100 05 07:05 36.8 C 75 18 132/73 05 07:03 87 100 05 06:58 72 99 05 06:53 81 99 05 06:48 75 99 05 06:49 75 131/72 05 06:43 83 100 05 06:38 81 99 05 06:33 99 05 06:33 81 05 06:33 85 137/86 05 06:28 79 99 05 06:06 18 07/07/22 06:06 36.6 C 18 07/07/22 06:23 88 100 07/07/22 06:19 80 132/76 05 06:18 88 100 07/07/22 06:13 76 99 05 06:08 73 100 07/07/22 06:03 86 100 07/07/22 06:04 83 138/87 05 05:58 77 99 05 05:53 78 100 05 05:48 71 140/78 99 07/07/22 05:43 75 100 05 05:38 81 100 07/07/22 05:33 70 134/82 100 05 05:28 82 99 07/07/22 05:23 82 100 07/07/22 05:18 83 149/72 H 100 07/07/22 05:13 81 100 07/07/22 05:08 85 100 07/07/22 05:04 92 H 07/07/22 05:03 77 100 07/07/22 05:04 88 139/80 94 07/07/22 04:58 79 98 05 04:53 78 100 05 04:48 72 135/75 100 05 04:43 77 100 07/07/22 04:38 79 98 05 04:33 77 97 05 04:34 72 139/82 05 04:28 72 99 05 04:23 76 99 05 04:19 76 137/75 05 04:18 76 99 05 04:13 73 100 05 03:50 18 07/07/22 03:50 36.3 C L 18 07/07/22 04:08 74 100 05 04:03 77 137/84 100 05 03:58 77 100 05 03:53 73 100 05 03:48 80 100 05 03:49 81 141/77 H 05 03:43 73 100 05 03:38 77 100 05 03:33 80 138/75 100 05 03:28 77 100 05 03:23 73 100 05 03:18 74 100 05 03:13 73 100 05 03:08 77 100 05 03:04 71 134/82 05 03:03 74 100 05 02:58 74 100 05 02:53 76 100 05 02:48 100 05 02:48 73 05 02:48 72 120/66 05 02:43 73 100 07/07/22 02:38 73 100 05 02:33 76 127/66 100 05 02:28 70 99 05 02:23 88 100 05 02:18 81 100 05 02:19 76 141/81 H 05 02:13 75 100 05 02:08 76 99 05 02:04 72 139/75 05 02:03 80 98 05 01:58 85 98 07/07/22 01:53 78 96 07/07/22 01:48 78 98 07/07/22 01:49 74 141/84 H 07/07/22 01:43 75 97 05 01:38 74 97 05 01:34 74 155/91 H 05 01:33 74 97 05 01:28 75 96 05 01:23 76 96 05 01:18 98 05 01:18 83 05 01:18 76 139/91 05 01:13 77 97 05 01:08 74 97 05 00:55 18 05 00:55 18 05 01:01 18 05 01:01 18 07/07/22 01:03 79 97 05 01:04 76 142/83 H 07/07/22 00:58 84 97 07/07/22 00:53 77 97 07/07/22 00:45 18 07/07/22 00:45 18 07/07/22 00:48 77 99 07/07/22 00:35 18 07/07/22 00:35 18 07/07/22 00:46 83 139/73 07/07/22 00:43 79 98 07/07/22 00:44 75 152/84 H 07/07/22 00:42 73 149/82 H 07/07/22 00:40 75 18 144/77 H 07/07/22 00:38 98 07/07/22 00:38 74 05 00:38 75 144/78 H 07/07/22 00:36 76 141/79 H 07/07/22 00:33 75 98 07/07/22 00:34 77 143/74 H 07/07/22 00:32 74 142/80 H 07/07/22 00:30 36.3 C L 82 18 145/77 H 07/07/22 00:28 80 165/93 H 98 07/07/22 00:24 90 164/96 H 07/07/22 00:23 82 97 07/07/22 00:18 78 98 07/07/22 00:13 78 98 07/06/22 23:55 73 07/06/22 23:55 146/95 H 07/06/22 23:40 75 07/06/22 23:40 155/88 H 07/06/22 23:25 72 07/06/22 23:25 159/90 H 07/06/22 23:11 70 05 23:11 162/85 H 07/06/22 22:55 69 05 22:55 166/92 H 07/06/22 22:41 66 05 22:41 148/92 H 07/06/22 22:09 74 05 22:09 132/84 05 21:54 75 07/06/22 21:54 133/81 05 21:40 69 0522 21:40 135/83 05 21:30 75 05 21:30 152/88 H 05 21:10 71 07/06/22 21:10 145/91 H 07/06/22 20:55 73 07/06/22 20:55 134/67 07/06/22 20:39 71 07/06/22 20:39 141/83 H 07/06/22 20:24 69 07/06/22 20:24 154/89 H 07/06/22 19:22 66 07/06/22 19:22 155/95 H 07/06/22 19:11 63 07/06/22 19:11 160/96 H 07/06/22 19:09 67 07/06/22 19:09 156/111 H 07/06/22 19:09 64 07/06/22 19:09 181/103 H 07/06/22 18:53 61 07/06/22 18:53 165/98 H 07/06/22 18:37 68 07/06/22 18:37 161/93 H 07/06/22 18:24 68 07/06/22 18:24 164/98 H Pain Intensity Bilateral Abdomen: Pain Intensity: 0 Transfer of Care Handoff Completed per policy Notes Mental Status: alert / awake / arousable and participated in evaluation Patient Amnestic to Procedure: No Nausea / Vomiting: adequately controlled Pain: adequately controlled Airway Patency, RR, SpO2: stable & adequate BP & HR: stable & adequate Hydration State: stable & adequate Neuraxial Anesthesia: was administered and sensory block is resolving Anesthetic Complications: no major complications apparent and Pt Satisfied with anesthetic care
--- NOTE | 2022-07-07 18:18 | Anesthesia Procedure Note ---
Date of Service July 07, 2022 Anesthesia Post Epidural Note Vital Signs Vital Signs: Temp Pulse Resp BP Pulse Ox O2 Del Method 36.7 C 95 H 18 133/71 100 Room Air 07/07/22 14:05 07/07/22 18:16 07/07/22 14:05 07/07/22 18:15 07/07/22 18:16 07/07/22 12:05 Pain Intensity Bilateral Abdomen: Pain Intensity: 0 Notes Mental Status: alert / awake / arousable and participated in evaluation Patient Amnestic to Procedure: No Nausea / Vomiting: adequately controlled Pain: adequately controlled Airway Patency, RR, SpO2: stable & adequate BP & HR: stable & adequate Hydration State: stable & adequate Neuraxial Anesthesia: was administered and sensory block is resolving Anesthetic Complications: no major complications apparent and Pt Satisfied with anesthetic care Epidural: Removed without complications and With tip intact
[2022-07-07 18:28] LABS: Base Excess Cord Venous Blood -2.6 mEq/L (-7.7-1.9); Cord Venous Blood HCO3 24 mmol/L (18.4-26.8); Cord Venous Blood PCO2 46 mmHg (30.4-57.2); Cord Venous Blood PO2 22 mmHg (14.1-43.3); Cord Venous Blood pH 7.32 (7.20-7.44); O2 Saturation Cord Venous Bld < 60.0 % (<68)
[2022-07-07 18:29] LABS: Base Excess Cord Arterial Bld -3.2 mEq/L (-9-1.8); CO2 Cord Arterial Blood 61 mmHg (39.1-73.5); HCO3 Cord Arterial Blood 26 mmol/L (19.7-28.5); Oxygen Sat Cord Arterial Blood < 60.0 % (<60); PO2 Cord Arterial Blood 14 mmHg (4.1-31.7); pH Cord Arterial Blood 7.23 (7.1-7.38)
[2022-07-07] MEDS ORDERED: SENNA 8.6 MG TAB PO PRN (18:36)
[2022-07-07] MEDS ORDERED: MAGNESIUM HYDROXIDE SUSP 30 ML UDC PO PRN (18:36)
[2022-07-07] MEDS ORDERED: DIPHTHERIA/TETANUS/PERTUSSIS Vaccine (Tdap, Age 7+yrs) 0.5mL SYR/VL IM ONE (18:36)
[2022-07-07] MEDS ORDERED: HYDROCORTISONE ACETATE 25 MG SUPP PR PRN (18:36)
[2022-07-07] MEDS ORDERED: BENZOCAINE 20% AER SPR 82.5 GM CAN EXT PRN (18:36)
[2022-07-07] MEDS ORDERED: SODIUM CHLORIDE 0.9% 250 ML IV PRN (19:22)
[2022-07-07] MEDS: OXYTOCIN 20 UNITS in LACTATED RINGER'S 1,000 ML IV SCH (20:14)
[2022-07-07] MEDS: KETOROLAC 30 MG/ML VIAL IV PRN (20:17)
[2022-07-07] MEDS: SIMETHICONE 80 MG CHEW PO SCH (22:09)
[2022-07-07] MEDS: DOCUSATE SODIUM 100 MG CAP PO SCH (22:35)
[2022-07-08] MEDS: OXYTOCIN 20 UNITS in LACTATED RINGER'S 1,000 ML IV SCH (04:25)
--- NOTE | 2022-07-08 06:10 | Obstetrical Progress Note ---
Date of Service <Clara McnamaraYeimy Martinez DO - Last Filed: 07/08/22 07:40> July 08, 2022 Assessment & Plan <Clara McnamaraYeimy Martinez DO - Last Filed: 07/08/22 07:40> (1) care following delivery: Patient is PPD 1 s/p primary CS and doing well. - Vitals reviewed and BPs 140-150s/70-80s over the last 12 hours- will continue to monitor - Pain well controlled with analgesics - OOB, ambulation, diet progression as tolerated - Blood type: O+, GBS neg, rubella immune - Plan to discharge tomorrow or Wednesday - After discharge, 6 week follow up with Dr. Garg <Derick Garg MD, FACOG - Last Filed: 07/08/22 07:52> (1) care following delivery: Subjective <Clara Colvin DO Juan - Last Filed: 07/08/22 07:40> Patient is a 26 yo female is POD #1 following delivery at 39 4/7 weeks. She reports feeling well overall this morning. She endorses abdominal cramping and 8/10 pain well managed on analgesics. Pt's catheter still in place. Has not eaten yet. She was sitting on the edge of the bed this AM; has not been OOB. Persistent lochia with some improvement this morning. Currently breast feeding. Review of Systems Denies fever, chills, sweats. Denies SOB, difficulty breathing, chest pain, palpitations, and chest pressure. Denies breast pain. Denies dysuria. Denies headache or changes in vision. Physical Exam <Clara McnamaraYeimy Martinez DO - Last Filed: 07/08/22 07:40> General: Alert and oriented. No acute distress. CV: Regular rate and rhythm. No murmurs. Respiratory: CTA bilaterally. No rhonchi, wheezes, or crackles. No increased work of breathing. Abdomen: Positive bowel sounds. Soft, nontender, and nondistended. Uterus: Fundus firm and palpable. Surgical scar bandage clean and dry. Lower extremities: No LE edema. No deep calf pain. Results & Data <Clara Martinez DO - Last Filed: 07/08/22 07:40> Vital Signs (Past 12 Hours) Vital Signs Temp Pulse Pulse Resp BP BP Pulse Ox 07/08/22 02:10 18 94 07/08/22 00:00 07/08/22 00:00 36.9 C 79 20 143/83 H 97 07/07/22 23:00 18 94 07/08/22 00:00 20 97 07/08/22 00:52 18 94 07/07/22 22:00 37.2 C 76 18 144/81 H 97 07/07/22 22:00 18 92 07/07/22 20:45 18 92 07/07/22 19:15 36.9 C 98 H 18 99 07/07/22 19:05 100 H 18 100 07/07/22 20:16 82 145/77 H 07/07/22 20:15 82 151/84 H 07/07/22 20:11 92 H 100 07/07/22 20:06 88 100 07/07/22 20:05 80 146/71 H 07/07/22 20:01 90 99 07/07/22 19:56 89 100 07/07/22 19:55 88 143/74 H 07/07/22 19:51 91 H 99 07/07/22 19:47 82 141/78 H 07/07/22 19:46 84 99 07/07/22 19:41 95 H 100 07/07/22 19:36 89 100 07/07/22 19:35 102 H 138/76 07/07/22 19:31 100 H 99 07/07/22 19:26 98 H 100 07/07/22 19:25 100 H 140/80 07/07/22 19:21 98 H 99 07/07/22 19:16 100 H 100 07/07/22 19:15 100 H 134/81 07/07/22 19:11 99 H 99 07/07/22 19:06 118 H 97 07/07/22 19:05 102 H 131/60 07/07/22 19:01 97 07/07/22 19:01 113 H 07/07/22 19:01 103 H 92 07/07/22 18:56 107 H 140/63 100 07/07/22 18:51 104 H 100 07/07/22 18:48 111 H 120/82 07/07/22 18:46 120 H 90 07/07/22 18:41 128 H 98 07/07/22 18:36 100 07/07/22 18:36 98 H 07/07/22 18:36 99 H 92 07/07/22 18:35 94 H 134/70 07/07/22 18:31 97 H 100 07/07/22 18:26 97 H 100 07/07/22 18:25 94 H 131/72 07/07/22 18:21 95 H 100 07/07/22 18:17 99 H 88 L 07/07/22 18:16 95 H 100 07/07/22 18:15 96 H 133/71 07/07/22 18:11 99 H 130/66 100 O2 Del Method 07/08/22 02:10 07/08/22 00:00 Room Air 07/08/22 00:00 Room Air 07/07/22 23:00 07/08/22 00:00 07/08/22 00:52 07/07/22 22:00 Room Air 07/07/22 22:00 07/07/22 20:45 07/07/22 19:15 07/07/22 19:05 07/07/22 20:16 07/07/22 20:15 07/07/22 20:11 07/07/22 20:06 07/07/22 20:05 07/07/22 20:01 07/07/22 19:56 07/07/22 19:55 07/07/22 19:51 07/07/22 19:47 07/07/22 19:46 07/07/22 19:41 07/07/22 19:36 07/07/22 19:35 07/07/22 19:31 07/07/22 19:26 07/07/22 19:25 07/07/22 19:21 07/07/22 19:16 07/07/22 19:15 07/07/22 19:11 07/07/22 19:06 07/07/22 19:05 07/07/22 19:01 07/07/22 19:01 07/07/22 19:01 07/07/22 18:56 07/07/22 18:51 07/07/22 18:48 07/07/22 18:46 07/07/22 18:41 07/07/22 18:36 07/07/22 18:36 07/07/22 18:36 07/07/22 18:35 07/07/22 18:31 07/07/22 18:26 07/07/22 18:25 07/07/22 18:21 07/07/22 18:17 07/07/22 18:16 07/07/22 18:15 07/07/22 18:11 <Derick Garg MD, FACOG - Last Filed: 07/08/22 07:52> Co-Signing Physician Notes Resident Physician Supervision Note: I was present with DrYeimy [Name of resident] during the history and exam. I discussed the case with the resident and agree with the findings and plan as documented in the note. Any exceptions or clarifications are listed here: [None] Documented By: Derick Garg MD, FACOG Resident Activity Tracking <Clara Martinez DO - Last Filed: 07/08/22 07:40> Resident Involvement: Resident Care Provided Care Provided: OB Delivery
[2022-07-08] MEDS: KETOROLAC 30 MG/ML VIAL IV PRN (06:41)
[2022-07-08 07:11] LABS: Basophils # (auto) 0.03 K/uL (0-0.2); Basophils % (auto) 0.2 %; Eosinophils # (auto) 0.01 K/uL (0-0.50); Eosinophils % (auto) 0.1 %; Hematocrit (blood only) 34.5 % (37.0-47.0); Immature Granulocytes # (auto) 0.06 K/uL (0.01-0.20); Immature Granulocytes % (auto) 0.5 %; Lymphocytes % (auto) 17.2 %; Mean Corpuscular Hemoglobin 29.7 pg (25.0-34.0); Mean Corpuscular Hgb Conc 34.8 g/dL (32.0-36.0); Mean Corpuscular Volume 85.4 fL (80.0-100.0); Monocytes # (auto) 0.69 K/uL (0.11-0.59); Monocytes % (auto) 5.4 %; Neutrophils # (auto) 9.78 K/uL (1.40-6.50); Neutrophils % (auto) 76.6 %; Platelet Count 180 K/uL (130-400); RDW Coefficient of Variation 14.1 % (11.5-14.5); RDW Standard Deviation 43.5 fL (36.4-46.3); Red Blood Count 4.04 M/uL (4.20-5.40); White Blood Count 12.77 K/ul (4.8-10.8)
[2022-07-08] MEDS: PRENATAL VITAMIN 1 TAB PO SCH (08:53)
[2022-07-08] MEDS: FERROUS SULFATE 325 MG TAB PO SCH (08:53)
[2022-07-08] MEDS: SIMETHICONE 80 MG CHEW PO SCH ×4 (08:53→21:23)
[2022-07-08] MEDS: DOCUSATE SODIUM 100 MG CAP PO SCH ×2 (08:53→21:23)
[2022-07-08] MEDS ORDERED: PROMETHAZINE HCL 25 MG in SODIUM CHLORIDE 0.9% 50 ML IV PRN (11:54)
[2022-07-08] MEDS ORDERED: diphenhydrAMINE 50 MG/ML VIAL IV PRN (11:54)
[2022-07-08] MEDS ORDERED: ONDANSETRON INJ 2 MG/ML 2 ML VIAL IV PRN (11:54)
[2022-07-08] MEDS ORDERED: diphenhydrAMINE Capsule 25 MG CAP PO PRN (11:54)
[2022-07-08] MEDS ORDERED: KETOROLAC 30 MG/ML VIAL IV PRN (11:54)
[2022-07-08] MEDS: IBUPROFEN 600 MG TAB PO PRN ×3 (12:46→22:13)
[2022-07-08] MEDS: oxyCODONE/ACETAMINOPHEN 5mg/325mg TAB PO PRN ×3 (12:46→22:13)
[2022-07-08] MEDS ORDERED: bisacodyL 5 MG TABEC PO SCH (20:00)
[2022-07-09] MEDS: oxyCODONE/ACETAMINOPHEN 5mg/325mg TAB PO PRN ×4 (05:47→20:41)
[2022-07-09] MEDS: IBUPROFEN 600 MG TAB PO PRN ×4 (05:47→20:41)
--- NOTE | 2022-07-09 05:49 | Obstetrical Progress Note ---
Date of Service <Clara McnamaraYeimy Martinez DO - Last Filed: 07/09/22 06:23> July 09, 2022 Assessment & Plan <Clara Colvin DO Juan - Last Filed: 07/09/22 06:23> (1) care following delivery: Patient is PPD 2 s/p primary CS and doing well. - Vitals reviewed and BPs 140s/70-80s overnight, 130s/70s this AM - Pain well controlled with analgesics - OOB, ambulation, diet progression as tolerated - Blood type: O+, GBS neg, rubella immune - Plan to discharge tomorrow - After discharge, 6 week follow up with Dr. Garg <Neena Black MD, FACOG - Last Filed: 07/09/22 07:31> (1) care following delivery: Subjective <Clara Colvin DO Juan - Last Filed: 07/09/22 06:23> Patient is a 26 yo female is POD #2 following delivery at 39 4/7 weeks. She reports feeling well overall this morning. She endorses abdominal cramping and 6/10 pain well managed on analgesics. Voiding with some burning but the warm water helps. Tolerating regular meals overnight and able to ambulate some. She has passed gas but no bowel movement. Persistent lochia with some improvement this morning. Currently breast feeding. Review of Systems Denies fever, chills, sweats. Denies SOB, difficulty breathing, chest pain, palpitations, and chest pressure. Denies breast pain. Denies dysuria. Denies headache or changes in vision. Physical Exam <Clara McnamaraYeimy Martinez DO - Last Filed: 07/09/22 06:23> General: Alert and oriented. No acute distress. CV: Regular rate and rhythm. No murmurs. Respiratory: CTA bilaterally. No rhonchi, wheezes, or crackles. No increased work of breathing. Abdomen: Positive bowel sounds. Soft, nontender, and nondistended. Uterus: Fundus firm and palpable 3 cm below umbilicus. Surgical scar bandage clean and dry. Lower extremities: No LE edema. No deep calf pain. Results & Data <Clara Martinez DO - Last Filed: 07/09/22 06:23> Vital Signs (Past 12 Hours) Vital Signs Temp Pulse Resp BP Pulse Ox O2 Del Method 07/08/22 23:35 Room Air 07/08/22 23:35 36.5 C 75 16 131/78 98 Room Air 07/08/22 21:00 Room Air 07/08/22 21:00 36.5 C 89 18 116/75 98 Room Air <Neena Black MD, FACOG - Last Filed: 07/09/22 07:31> Co-Signing Physician Notes Resident Physician Supervision Note: I interviewed and examined the patient. Discussed with Dr. Martinez and agree with findings and plan as documented in the note. Any exceptions or clarifications are listed here: Doing well. routine POD 2. Documented By: Neena Black MD, FACOG Resident Activity Tracking <Clara Martinez, DO - Last Filed: 07/09/22 06:23> Resident Involvement: Resident Care Provided Care Provided: OB Delivery
[2022-07-09 07:38] LABS: Hematocrit (blood only) 28.6 % (37.0-47.0); Hemoglobin 9.9 g/dl (12.0-16.0)
[2022-07-09] MEDS: SIMETHICONE 80 MG CHEW PO SCH ×4 (08:47→20:42)
[2022-07-09] MEDS: PRENATAL VITAMIN 1 TAB PO SCH (08:48)
[2022-07-09] MEDS: DOCUSATE SODIUM 100 MG CAP PO SCH ×2 (08:48→20:42)
[2022-07-09] MEDS: FERROUS SULFATE 325 MG TAB PO SCH (08:48)
[2022-07-09] MEDS ORDERED: bisacodyL 10 MG SUPP PR PRN (18:12)
[2022-07-10] MEDS: IBUPROFEN 600 MG TAB PO PRN ×4 (03:26→18:14)
[2022-07-10] MEDS: oxyCODONE/ACETAMINOPHEN 5mg/325mg TAB PO PRN ×4 (03:26→18:13)
--- NOTE | 2022-07-10 06:57 | Obstetrical Progress Note ---
Date of Service July 10, 2022 Assessment & Plan (1) care following delivery: D/C instructions reviewed. 1wk f/u for BP 6wk f/u for routine pp. Will reassess breast findings at that time and can order imaging if still abnormal. Did offer inpatient imaging but radiologists declined and recommended she use breast center if this is felt to be required. Subjective Ambulation: ambulating normally Voiding: no voiding problems Passing Gas:: Yes Diet Tolerance:: regular diet Lochia:: Small Feeding Type:: breast feeding (minimal milk yet) Physical Exam Constitutional WD/WN, vitals as above Eyes PERRL, conjunctivae normal, anicteric sclerae Neck normal visual inspection Respiratory normal respiratory effort and able to speak in complete sentences; no respiratory distress and no labored breathing Cardiovascular Rate/Rhythm: regular rate and regular rhythm Extremities: no edema Chest (Breasts) Chest: normal inspection of chest Additional Comments: Bilateral symmetric peau d'orange c/w skin edema 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 Bilaterality is reassuring. Gastrointestinal (Abdomen) Inspection/Auscultation: abdomen normal to inspection Soft, postgravid Psychiatric A+Ox3, euthymic affect Genitourinary OB Exam Abdomen: + fundal height Fundus: + firm and + relation to umbilicus (fundus just below umbilicus); not tender Results & Data Vital Signs (Past 12 Hours) Vital Signs Temp Pulse Resp BP Pulse Ox O2 Del Method 07/09/22 23:07 97.7 F 61 18 143/88 H 99 Room Air 07/09/22 19:27 97.7 F 84 18 146/65 H 99 Room Air
[2022-07-10] MEDS: DOCUSATE SODIUM 100 MG CAP PO SCH (08:59)
[2022-07-10] MEDS: PRENATAL VITAMIN 1 TAB PO SCH (08:59)
[2022-07-10] MEDS: FERROUS SULFATE 325 MG TAB PO SCH (09:00)
[2022-07-10] MEDS: SIMETHICONE 80 MG CHEW PO SCH ×3 (09:12→18:14)
[2022-07-10] MEDS ORDERED: NIFEdipine EXTENDED REL 30 MG TABCR PO STA (14:22)
--- NOTE | 2022-07-10 14:26 | Obstetrical Progress Note ---
Date of Service July 10, 2022 Assessment & Plan Admission and Anticipated Discharge Date Admission Date: July 06, 2022 Subjective Elevated BPs, no ASTUDILLO or other symptoms. 150s/90s. Will give procardia XL 30mg, watch BPs this afternoon. If improved, then ok for DC home (will run past on-call), if no improvement then may need to keep overnight to watch BPs. Will need to follow up in office in 1w for BP check. Results & Data Vital Signs (Past 12 Hours) Vital Signs Temp Pulse Pulse Resp BP Pulse Ox O2 Del Method 07/10/22 08:25 36.8 C 68 20 154/91 H Room Air 07/10/22 07:25 36.7 C 73 18 144/89 H 100 Room Air PG Care Time/CCT Total # of Minutes Spent Total Time Spent with Patient: Total time spent is greater than 50% in coordination of care (as documented) at patient's floor/unit and/or counseling patient: Coding Level of Care Code None Diagnoses
[2022-07-10 15:36] VITALS: PULSE 58; O2SAT 98
[2022-07-10 15:56] VITALS: TEMP 97.9
--- NOTE | 2022-07-10 17:21 | Communication Note ---
Date of Service: July 07, 2022- July 10, 2022. The above patient was hospitalized at [facility] on the above dates. Ness Godfrey MD
[2022-07-10 18:18] VITALS: BP 137/89
--- NOTE | 2022-07-10 18:52 | Communication Note ---
Date of Service: July 06, 2022- June Above patient was hospitalized at [facility] for series of dates noted above. Ness Godfrey MD
== END 2022-07-10 21:41 | disposition home or self-care (01) | DRG 788 ==
LOC: OPB 12:20 → 4S1 12:22 → 4E2 07-07 21:01